=== PATIENT | female | born 1970 | race Two or more races ===

== ENCOUNTER 2018-12-05 20:10 | Emergency (ER) | payer SELFPAY ==
[~2018-12-05] VITALS: Ht 152.4 cm; Wt 54.0 kg
[2018-12-05 20:18] VITALS: BP 151/82
--- NOTE | 2018-12-05 20:18 | NUR ---
ED Nurse Note: Pt arrived ED from home, c/o left forarm was bite by a dog today and riglara forarm has a skin injuried today. Pt is A/O X4. Vital signs stable at this time, waiting for orders.
--- NOTE | 2018-12-05 20:31 | Emergency Room Report ---
History of Present Illness General Chief Complaint: Animal Bite Source: Patient Present Illness HPI 48-year-old female with no significant past medical history here complaining of pain in left wrist after a dog bite today. Patient was attacked by a bulldog that belonged to a neighbor. Police report was provided paramedics came to the scene and advised her to go to the ER and get rabies vaccine. Patient denies any chest pain, S OB, palpitation, dizziness, diaphoresis. According to the patient the dog attacked her once and was, after his meter reading clerk came into the scene. Patient reports that according to the dog's meter reading clerk of dog was up-to-date with all of his immunizations. Patient is up-to-date with his tetanus. Complains of 5 out of 10 pain on the left breast where there is a dog bite denying any pain radiation, has not taken any medication for pain. Full range of motion denies any tingling numbness. Denies all other injuries has history of high blood pressure and reports that she was scared that after she was attacked by a dog Allergies: Coded Allergies: No Known Allergies (Unverified , 12/05/18) Patient History Past Medical History: see triage record Past Surgical History: none Pertinent Family History: none Now: No : 2 Para: 2 Immunizations: UTD - Tdap less than 5yrs ago Reviewed Nursing Documentation: PMH: Agreed; PSxH: Agreed Nursing Documentation-PMH Past Medical History: No Stated History Review of Systems All Other Systems: negative except mentioned in HPI Physical Exam Vital Signs Date Time Temp Pulse Resp B/P (MAP) Pulse Ox O2 Delivery O2 Flow Rate FiO2 12/05/18 20:14 98.2 78 16 159/86 97 Room Air Sp02 EP Interpretation: reviewed, normal General Appearance: normal inspection, well appearing, no apparent distress, alert Head: normocephalic Eyes: bilateral eye normal inspection, bilateral eye PERRL ENT: normal ENT inspection, normal pharynx Neck: normal inspection, full range of motion, supple Respiratory: normal inspection, lungs clear, no rhonchi, no wheezing Cardiovascular #1: normal inspection, normal peripheral pulses, no edema, no murmur Cardiovascular #2: 2+ radial (R), 2+ radial (L) Gastrointestinal: normal inspection, soft Musculoskeletal: back normal, digits/nails normal, gait/station normal, normal range of motion Neurologic: normal inspection, alert, oriented x3 Psychiatric: normal inspection, judgement/insight normal, memory normal, mood/ affect normal, no suicidal/homicidal ideation Skin: no rash, warm/dry, other - dog bite left wrist Lymphatic: normal inspection, no adenopathy Medical Decision Making PA Attestation All diagnoses and treatment plans were reviewed and discussed with my supervising physician Dr. Mansfield Diagnostic Impression: Primary Impression: Dog bite of left wrist ER Course 48-year-old female with no significant past medical history here complaining of pain in left wrist after a dog bite today. Patient was attacked by a bulldog that belonged to a neighbor. Police report was provided paramedics came to the scene and advised her to go to the ER and get rabies vaccine. Patient denies any chest pain, S OB, palpitation, dizziness, diaphoresis. According to the patient the dog attacked her once and was, after his meter reading clerk came into the scene. Patient reports that according to the dog's meter reading clerk of dog was up-to-date with all of his immunizations. Patient is up-to-date with his tetanus. Complains of 5 out of 10 pain on the left breast where there is a dog bite denying any pain radiation, has not taken any medication for pain. Full range of motion denies any tingling numbness. Denies all other injuries has history of high blood pressure and reports that she was scared that after she was attacked by a dog Ddx considered but are not limited to infected dog bite, penetrating dog bite Vital signs: are WNL, pt. is afebrile H&PE are most consistent with infected dog bite ORDERS: augmentin, bactroban, ED INTERVENTIONS: wound clean DISCHARGE: At this time pt. is stable for d/c to home. Will provide printed patient care instructions, and any necessary prescriptions. Care plan and follow up instructions have been discussed with the patient prior to discharge. I explained the patient that rabies vaccine and prophylaxis is not needed as the dog has on her is up-to-date with immunization however follow-up with a primary care provider or return to the emergency room if any excess perspiration , abnormal behavior, chest pain, S OB fever chills. Last Vital Signs Date Time Temp Pulse Resp B/P (MAP) Pulse Ox O2 Delivery O2 Flow Rate FiO2 4/7/19 20:14 98.2 78 16 159/86 97 Room Air Disposition: HOME, SELF-CARE Condition: Stable Scripts Mupirocin (MUPIROCIN) 15 Gm Cream..g. 1 APPLIC TOPIC THREE TIMES A DAY, #15 GM Prov: Lela Richter 12/05/18 Amoxicillin/Potassium Clav 875-125* (AUGMENTIN 875-125 TABLET*) 1 Each Tablet 1 TAB ORAL TWICE A DAY for 14 Days, #20 TAB Prov: Lela Richter 12/05/18 Patient Instructions: Animal Bite Additional Instructions: Fever, chills, shortness of breath, return to the emergency room take antibiotics as directed follow-up with a primary care provider in 2 days for wound check. No rabies vaccination or prophylaxis needed at this time as the dog was owned and up-to-date with immunization I explained the patient that rabies vaccine and prophylaxis is not needed as the dog has on her is up-to-date with immunization however follow-up with a primary care provider or return to the emergency room if any excess perspiration , abnormal behavior, chest pain, S OB fever chills. Lela Richter Dec 05, 2018 20:31
[2018-12-05] MEDS ORDERED: MUPIROCIN15 GM TOPIC (20:32)
[2018-12-05] MEDS ORDERED: AUGMENTIN 875-1 EAC1 ORAL (20:32)
[2018-12-05] MEDS ORDERED: Bacitracin Oint UD TOPIC ONE ×2 (20:37→20:50)
[2018-12-05 20:52] VITALS: BP 151/82
--- NOTE | 2018-12-05 20:52 | NUR ---
ER DISCHARGE NOTE: Patient is cleared to be discharged per Lela Garza / ANA. Bacitricin and dressing applied to left and rigth arma. Pt states that she had Tetanus given this year. Pt is A/O x 4 on room air with stable vital signs. Pt was given D/C and prescription instructions and was able to verbalize understanding. Pt's ID band removed. Pt is able to ambulate with steady gait and took all belongings. Accompanied by her family.
--- NOTE | 2018-12-05 22:45 | NUR ---
Note jevon in EDM - 12/05/18 at 2253 by BALAJI ED Nurse Note: Pt arrived ED from home, c/o left forarm was bite by a dog today and eugenie leary has a skin injuried today. Pt is A/O X4. Vital signs stable at this time, waiting for orders.
== END 2018-12-05 20:52 | disposition home or self-care (01) ==
LOC: EMR 20:51
DX: S61.552A Open bite of left wrist, initial encounter (principal); W54.0XXA Bitten by dog, initial encounter; Y92.9 Unspecified place or not applicable
CPT/HCPCS: 99282